=== PATIENT | female | born 1965 | race Caucasian/White ===

== ENCOUNTER 2016-07-03 06:50 | Inpatient (IN) | payer BC ==
[~2016-07-03] VITALS: Ht 160 cm; Wt 112.7 kg
[~2016-07-03 06:50] MED LIST: ARTHROTEC; ARTHROTEC 751 TABLET PO; AUGMENTIN875 MG PO; BACTRIM,SEPT1 TABLET PO; BACTROBAN NASAL1 G1 BOTH NARES; CELECOXIB200 MG PO; CHEWABLE-VITE1 EACH PO; CLARITIN-D 121 EACH PO; ENDOCET 5-3251 EACH PO; FLEXERIL10 MG PO; GLUCOSAMINE-CH1 EA44 PO; IRON325 M1 PO; LOVENOX40 MG/0.4 SC; MEDROL DOSEPAK4 MG PO; NORCO 5/3251 TABLET PO; OXYCONTIN10 MG PO; PEPCID20 MG PO; PERCOCET 5/31 TABLET PO; PHENERGAN DM SYR1 ML PO; ROBITUSSIN AC,T10 ML PO; TORADOL10 MG PO; TRICOR48 MG PO; TYLENOL ARTHRI650 MG PO; VICODIN 5-3001 EACH PO; VICOPROFEN1 TABLET PO
[2016-07-03 07:49] VITALS: BP 116/63
[2016-07-03 12:15] LABS: HEMATOCRIT 40.3 % (36.0-46.0); MCH 28.8 PG (29.0-34.0); MCHC 32.8 G/DL (30.0-36.0); MEAN PLAT.VOLUME 10.8 uM^3 (9.5-12.4); PLATELET COUNT 226 K/uL (156-360); RBC DIS.WIDTH-CV 12.6 % (11.8-14.6); RBC DIS.WIDTH-SD 40.2 % (39-53); RED BLOOD COUNT 4.58 M/uL (3.80-5.20); WHITE BLOOD COUNT 8.8 K/uL (4.1-10.2)
[2016-07-03 12:42] VITALS: BP 129/75
[2016-07-03 15:30] VITALS: BP 122/61
[2016-07-03 19:57] VITALS: BP 165/78
[2016-07-03 23:57] VITALS: BP 131/68
[2016-07-04 04:20] VITALS: BP 128/71
[2016-07-04 05:52] LABS: HEMATOCRIT 38.8 % (36.0-46.0); MCV 87.6 FL (83-99)
[2016-07-04 06:13] LABS: ANION GAP 12 MEQ/L (2-14); CHLORIDE 99 MEQ/L (99-109); GFR ESTIMATE (CALCULATED) > 59 mL/min/; GLUCOSE 134 mg/dL (70-99); POTASSIUM 3.9 MEQ/L (3.7-5.4); SAMPLE HEMOLYSIS CHECK 0; SAMPLE ICTERIC CHECK 0; SAMPLE LIPEMIA CHECK 0; SODIUM 134 MEQ/L (136-147); UREA NITROGEN (BUN) 10 mg/dL (9-23)
[2016-07-04 08:00] VITALS: BP 179/84
[2016-07-04 11:34] VITALS: BP 163/75
[2016-07-04 15:55] VITALS: BP 142/74
[2016-07-04 20:19] VITALS: BP 130/75
[2016-07-05 00:11] VITALS: BP 147/76
[2016-07-05 04:20] VITALS: BP 136/72
[2016-07-05 05:29] LABS: HEMATOCRIT 35.6 % (36.0-46.0); MCV 87.3 FL (83-99)
[2016-07-05 05:50] LABS: ANION GAP 8 MEQ/L (2-14); CHLORIDE 103 MEQ/L (99-109); GFR ESTIMATE (CALCULATED) > 59 mL/min/; GLUCOSE 112 mg/dL (70-99); POTASSIUM 3.7 MEQ/L (3.7-5.4); SAMPLE HEMOLYSIS CHECK 0; SAMPLE ICTERIC CHECK 0; SAMPLE LIPEMIA CHECK 0; SODIUM 138 MEQ/L (136-147); UREA NITROGEN (BUN) 10 mg/dL (9-23)
[2016-07-05 08:00] VITALS: BP 119/58
[2016-07-05] MEDS ORDERED: LOVENOX40 MG/0.4 SC (08:46)
[2016-07-05] MEDS ORDERED: TRAMADOL HCL50 MG PO (08:47)
[2016-07-05] MEDS ORDERED: OXYCONTIN10 MG PO (08:47)
[2016-07-05] MEDS ORDERED: CELECOXIB200 MG PO (08:47)
[2016-07-05] MEDS ORDERED: ONDANSETRON ODT4 MG PO (08:47)
[2016-07-05] MEDS ORDERED: DOCUSATE SODIU100 MG PO (08:47)
[2016-07-05 12:09] VITALS: BP 123/76
[2016-07-05 15:01] VITALS: BP 114/57
== END 2016-07-05 15:40 | disposition home or self-care (01) | DRG 470 ==
LOC: 2SOUTH 06:50 → SDC 11:33 → EDSTATUS 11:33 → 2SOUTH 11:36 → 3WEST 12:17 → 2SOUTH 14:13 → 3WEST 07-05 15:40
PROVIDERS: Orthopaedic Surgery; Physician Assistant
PROC: 0SRC0J9 Replacement of Right Knee Joint with Synthetic Substitute, Cemented, Open Approach (ICD-10-PCS; principal; 2016-07-03)
DX: M17.11 Unilateral primary osteoarthritis, right knee (principal); Z68.41 Body mass index [BMI] 40.0-44.9, adult; F41.9 Anxiety disorder, unspecified; F32.9 Major depressive disorder, single episode, unspecified; E78.5 Hyperlipidemia, unspecified; M54.5 Low back pain; Z87.891 Personal history of nicotine dependence; M21.161 Varus deformity, not elsewhere classified, right knee; E66.9 Obesity, unspecified
CPT/HCPCS: 73560; 80048; 85014; 85018; 85027; 97530 GP; J0690; J1170; J1650; J2250; J2405; J3370; J7050

== ENCOUNTER 2017-01-03 07:36 | Emergency (ER) | payer BC ==
[~2017-01-03] VITALS: Ht 157.5 cm; Wt 114.8 kg
[~2017-01-03 07:36] MED LIST changes: +DOCUSATE SODIU100 MG PO; +ONDANSETRON ODT4 MG PO; +TRAMADOL HCL50 MG PO
[2017-01-03 08:35] LABS: HEMATOCRIT 44.1 % (36.0-46.0); MCH 29.6 PG (29.0-34.0); MEAN PLAT.VOLUME 10.9 uM^3 (9.5-12.4); PLATELET COUNT 222 K/uL (156-360); RBC DIS.WIDTH-CV 12.4 % (11.8-14.6); RBC DIS.WIDTH-SD 39.3 % (39-53); RED BLOOD COUNT 5.07 M/uL (3.80-5.20); WHITE BLOOD COUNT 8.7 K/uL (4.1-10.2)
[2017-01-03 08:56] LABS: CHLORIDE 108 mEq/L (99-109); POTASSIUM 4.2 mEq/L (3.7-5.4); SODIUM 142 mEq/L (136-147)
[2017-01-03 08:58] LABS: GLUCOSE 96 mg/dL (70-99)
[2017-01-03 08:59] LABS: ANION GAP 13 MEQ/L (2-14)
[2017-01-03 09:02] LABS: GFR ESTIMATE (CALCULATED) > 59 mL/min/
[2017-01-03 09:03] LABS: UREA NITROGEN (BUN) 16 mg/dL (9-23)
[2017-01-03 09:25] LABS: ADD MIUA? YES; BILIRUBIN NEGATIVE; BLOOD NEGATIVE; COLOR LT YELLOW ((YELLOW)); GLUCOSE (STRIP) NEGATIVE; KETONES NEGATIVE; LEUKOCYTES MODERATE; NITRITE NEGATIVE; PROTEIN (STRIP) NEGATIVE; SPECIFIC GRAVITY 1.012 (1.000-1.030); UROBILINOGEN 0.2 MG/DL (0.2-1.0)
[2017-01-03 09:27] LABS: BACTERIA RARE /HPF; EPITHELIAL CELLS RARE /HPF; MUCUS NONE SEEN /LPF; RED BLOOD CELLS 0-5 /HPF (0-5); WHITE BLOOD CELLS 0-5 /HPF (0-5)
[2017-01-03] MEDS ORDERED: MEDROL DOSEPAK4 MG PO (10:25)
[2017-01-03] MEDS ORDERED: FLEXERIL10 MG PO (10:25)
[2017-01-03] MEDS ORDERED: ULTRAM50 MG PO (10:25)
[2017-01-03 10:46] VITALS: BP 162/97
== END 2017-01-03 10:52 | disposition home or self-care (01) ==
LOC: EME 07:36
PROVIDERS: Nurse Practitioner Family
DX: M54.16 Radiculopathy, lumbar region (principal); M54.42 Lumbago with sciatica, left side; Z96.653 Presence of artificial knee joint, bilateral; Z87.891 Personal history of nicotine dependence; Z87.440 Personal history of urinary (tract) infections
CPT/HCPCS: 74176; 80048; 81003; 85027; 99281; 99283; J1885